=== PATIENT | female | born 1935 | race Caucasian/White ===

== ENCOUNTER 2016-10-30 08:12 | Day surgery (SDC) | payer MEDICARE, OTHER ==
[~2016-10-30 08:12] MED LIST: AMBIEN10 M1 PO; ASPIRIN EC81 MG PO; CALCIUM 600 +1 EA11 PO; FISH OIL 1,2001 EAC8 PO; OCUVITE SOFTGE1 EACH PO; ZESTRIL10 MG; ZIAC 10-6.25 M1 EACH PO; ZOCOR40 M1 PO; ZOCOR40 MG
[2016-10-31] MEDS ORDERED: PERCOCET 5-3251 EACH PO (00:43)
== END 2016-10-31 11:10 ==
LOC: WSU 08:12 → SHSB 08:15 → ORW 10:57 → PACU 12:13 → OBGF 13:00
PROC: 0JQC0ZZ Repair Pelvic Region Subcutaneous Tissue and Fascia, Open Approach (ICD-10-PCS; principal; 2016-10-30)
PROC: 0UT94ZZ Resection of Uterus, Percutaneous Endoscopic Approach (ICD-10-PCS; 2016-10-30)
PROC: 0UTC4ZZ Resection of Cervix, Percutaneous Endoscopic Approach (ICD-10-PCS; 2016-10-30)
PROC: 0UT24ZZ Resection of Bilateral Ovaries, Percutaneous Endoscopic Approach (ICD-10-PCS; 2016-10-30)
PROC: 0UT74ZZ Resection of Bilateral Fallopian Tubes, Percutaneous Endoscopic Approach (ICD-10-PCS; 2016-10-30)
PROC: 8E0W4CZ Robotic Assisted Procedure of Trunk Region, Percutaneous Endoscopic Approach (ICD-10-PCS; 2016-10-30)
DX: N81.2 Incomplete uterovaginal prolapse (principal); N80.0 Endometriosis of uterus; D25.9 Leiomyoma of uterus, unspecified; N72 Inflammatory disease of cervix uteri; N73.6 Female pelvic peritoneal adhesions (postinfective); I10 Essential (primary) hypertension; E78.5 Hyperlipidemia, unspecified; Z90.49 Acquired absence of other specified parts of digestive tract; Z98.41 Cataract extraction status, right eye; Z98.42 Cataract extraction status, left eye; Z79.82 Long term (current) use of aspirin; Z79.899 Other long term (current) drug therapy; Z98.890 Other specified postprocedural states
CPT/HCPCS: J0690; J7030; J7121